=== PATIENT | male | born 1950 | race Caucasian/White ===

== ENCOUNTER 2016-07-16 11:59 | Emergency (ER) | payer MEDICARE ==
[~2016-07-16 11:59] MED LIST: ASPIRIN EC81 MG PO; ELAVIL 25 MG TA25 MG PO; FLOMAX 0.4 MG0.4 MG PO; LANTUS100 UNIT/1 SQ; LASIX20 MG PO; LORTAB 10-3251 EACH PO; LYRICA200 MG PO; NEXIUM40 MG PO; NORVASC 5 MG TAB5 MG PO; NOVOLOG 10100 UNITS/ SQ; PLAVIX 75 MG TA75 MG PO; RANEXA500 MG PO; SEROQUEL50 MG PO; TOPROL XL 25 MG25 MG PO; TRICOR48 MG PO; VENTOLIN/PROVE0.5 ML INH
== END 2016-07-16 15:10 | disposition home or self-care (01) ==
LOC: ER1 11:59
DX: F41.9 Anxiety disorder, unspecified (principal); I51.9 Heart disease, unspecified; Z88.8 Allergy status to other drugs, medicaments and biological substances; Z79.899 Other long term (current) drug therapy
CPT/HCPCS: 93005; 96374; 99283

== ENCOUNTER 2016-08-20 21:47 | Emergency (ER) | payer MEDICARE | END 2016-08-20 21:57 | disposition left against medical advice (07) | LOC: ER1 21:47 | DX: Z53.21 Procedure and treatment not carried out due to patient leaving prior to being seen by health care provider (principal) ==

== ENCOUNTER 2020-05-10 16:19 | Inpatient (IN) | payer MEDICARE, OTHER ==
[~2020-05-10] VITALS: Ht 182.9 cm; Wt 88.5 kg
[~2020-05-10 16:19] MED LIST changes: +BACTROBAN CREAM15 GM TOP; +CLARITIN10 MG PO; +CLEOCIN 150MG150 MG PO; +CYCLOBENZAPRINE5 MG PO; +HYDROCODON-ACE1 EAC6 PO; +K-DUR TAB 10 M10 MEQ PO; +LIPITOR80 MG PO; +LODINE CAP 300300 MG PO; -LORTAB 10-3251 EACH PO; +NEURONTIN300 MG PO; +NEURONTIN600 MG PO; +NITROSTAT0.4 MG SL; +NORCO 5-325 TA1 EACH PO; +NOVOLOG 10100 UNITS2 INJ; +PAXIL20 MG PO; +PAXIL40 MG PO; +PERCOCET 5-3251 EACH PO; +PREGABALIN75 MG PO; +RANEXA1000 MG PO; -RANEXA500 MG PO; +SIMVASTATIN10 MG PO; +ST. JOSEPH ASPI81 MG PO; +TOPROL XL25 MG PO; +VISTARIL25 MG PO; +ZESTRIL30 MG PO; +ZOCOR 40 MG TAB40 MG PO
[2020-05-10 17:34] LABS: HEMOGLOBIN 11.9 gm/dl (14.0-17.5); RED BLOOD COUNT 3.74 M/UL (4.20-5.50); WHITE BLOOD COUNT 5.7 K/UL (4.5-11.0)
[2020-05-10] MEDS ORDERED: VITAMIN D31250 MCG PO (23:04)
[2020-05-10] MEDS ORDERED: ACID CONTROLLER20 MG PO (23:07)
[2020-05-10] MEDS ORDERED: LANTUS SOL100 UNIT/1 SQ (23:25)
[2020-05-11 04:35] LABS: HEMOGLOBIN 10.8 gm/dl (14.0-17.5); WHITE BLOOD COUNT 4.5 K/UL (4.5-11.0)
[2020-05-11 04:36] LABS: RED BLOOD COUNT 3.34 M/UL (4.20-5.50)
[2020-05-11 04:59] LABS: BUN/CREATININE RATIO 24 (0-10)
[2020-05-13 07:09] LABS: BUN/CREATININE RATIO 13 (0-10)
[2020-05-13] MEDS ORDERED: LANTUS SOL100 UNIT/1 SQ (10:43)
== END 2020-05-13 13:06 | disposition home or self-care (01) | DRG 637 ==
LOC: ER1 16:19 → CDU 23:41 → MED SURG 4 23:41
PROVIDERS: Family Medicine; Internal Medicine; ADMIT Internal Medicine
DX: E11.649 Type 2 diabetes mellitus with hypoglycemia without coma (principal); G93.41 Metabolic encephalopathy; E86.0 Dehydration; E78.5 Hyperlipidemia, unspecified; E11.51 Type 2 diabetes mellitus with diabetic peripheral angiopathy without gangrene; I25.10 Atherosclerotic heart disease of native coronary artery without angina pectoris; N40.0 Benign prostatic hyperplasia without lower urinary tract symptoms; N17.9 Acute kidney failure, unspecified; I12.9 Hypertensive chronic kidney disease with stage 1 through stage 4 chronic kidney disease, or unspecified chronic kidney disease; E11.22 Type 2 diabetes mellitus with diabetic chronic kidney disease; Z20.822 Contact with and (suspected) exposure to COVID-19; N18.30 Chronic kidney disease, stage 3 unspecified; F39 Unspecified mood [affective] disorder; J44.9 Chronic obstructive pulmonary disease, unspecified; F41.9 Anxiety disorder, unspecified; F32.9 Major depressive disorder, single episode, unspecified; E11.40 Type 2 diabetes mellitus with diabetic neuropathy, unspecified; K21.9 Gastro-esophageal reflux disease without esophagitis; Z82.49 Family history of ischemic heart disease and other diseases of the circulatory system; Z83.3 Family history of diabetes mellitus; Z88.8 Allergy status to other drugs, medicaments and biological substances; Z95.820 Peripheral vascular angioplasty status with implants and grafts; Z95.5 Presence of coronary angioplasty implant and graft; Z95.1 Presence of aortocoronary bypass graft; Z79.02 Long term (current) use of antithrombotics/antiplatelets; Z79.82 Long term (current) use of aspirin; Z79.4 Long term (current) use of insulin; Z79.899 Other long term (current) drug therapy; D64.9 Anemia, unspecified; E88.09 Other disorders of plasma-protein metabolism, not elsewhere classified
CPT/HCPCS: 36600; 70450; 80048; 80053; 80307; 81001; 82550; 82553; 82803; 82962; 84484; 85025; 93005; 94760; 96374; 96375; 96376; 97161; 99285; G0378; J1650; J2060; J2310; J7050; J7070; U0002

== ENCOUNTER 2020-09-27 00:14 | Emergency (ER) | payer MEDICARE ==
[~2020-09-27 00:14] MED LIST changes: +ACID CONTROLLER20 MG PO; +LANTUS SOL100 UNIT/1 SQ; +VITAMIN D31250 MCG PO
[2020-09-27] MEDS ORDERED: NORFLEX 100 MG100 MG PO (02:31)
== END 2020-09-27 02:40 | disposition home or self-care (01) ==
LOC: ER1 00:14
DX: G89.29 Other chronic pain (principal); M79.604 Pain in right leg; M79.605 Pain in left leg; I25.10 Atherosclerotic heart disease of native coronary artery without angina pectoris; E78.5 Hyperlipidemia, unspecified; I11.9 Hypertensive heart disease without heart failure; E11.40 Type 2 diabetes mellitus with diabetic neuropathy, unspecified; Z95.1 Presence of aortocoronary bypass graft; Z90.49 Acquired absence of other specified parts of digestive tract; Z88.5 Allergy status to narcotic agent; Z88.8 Allergy status to other drugs, medicaments and biological substances
CPT/HCPCS: 99283

== ENCOUNTER 2020-10-23 08:53 | Emergency (ER) | payer MEDICARE ==
[~2020-10-23 08:53] MED LIST changes: -FLOMAX 0.4 MG0.4 MG PO; -LIPITOR80 MG PO; -NEURONTIN600 MG PO; -NEXIUM40 MG PO; +NORFLEX 100 MG100 MG PO; -VITAMIN D31250 MCG PO
[2020-10-23] MEDS ORDERED: CYCLOBENZAPRINE10 MG PO (12:55)
== END 2020-10-23 13:50 | disposition home or self-care (01) ==
LOC: ER1 08:53
DX: M51.36 Other intervertebral disc degeneration, lumbar region (principal); M16.11 Unilateral primary osteoarthritis, right hip; E11.40 Type 2 diabetes mellitus with diabetic neuropathy, unspecified; Z95.1 Presence of aortocoronary bypass graft; Z90.49 Acquired absence of other specified parts of digestive tract; Z87.891 Personal history of nicotine dependence
CPT/HCPCS: 72131; 73502; 82962; 96372; 99284; J2360

== ENCOUNTER 2020-11-15 15:41 | Emergency (ER) | payer MEDICARE ==
[~2020-11-15] VITALS: Ht 172.7 cm; Wt 83.9 kg
[~2020-11-15 15:41] MED LIST changes: +CYCLOBENZAPRINE10 MG PO
[2020-11-15 17:03] LABS: HEMOGLOBIN 10.7 gm/dl (14.0-17.5); RED BLOOD COUNT 3.4 M/UL (4.20-5.50); WHITE BLOOD COUNT 6.9 K/UL (4.5-11.0)
[2020-11-15 17:40] LABS: BUN/CREATININE RATIO 10 (0-10)
[2020-11-16] MEDS ORDERED: PLAVIX 75 MG TA75 MG PO (02:11)
[2020-11-16] MEDS ORDERED: NEXIUM40 MG PO (02:11)
[2020-11-16] MEDS ORDERED: FLOMAX 0.4 MG0.4 MG PO (02:13)
[2020-11-16 03:56] LABS: HEMOGLOBIN 10.8 gm/dl (14.0-17.5); RED BLOOD COUNT 3.42 M/UL (4.20-5.50)
[2020-11-16 03:57] LABS: WHITE BLOOD COUNT 4.6 K/UL (4.5-11.0)
[2020-11-16] MEDS ORDERED: NEURONTIN600 MG PO ×2 (10:35→17:47)
[2020-11-16] MEDS ORDERED: ULTRAM50 MG PO (10:36)
[2020-11-16] MEDS ORDERED: LANTUS100 UNIT/1 SC (10:37)
[2020-11-16] MEDS ORDERED: CO Q-10100 MG PO (10:40)
[2020-11-16] MEDS ORDERED: LIPITOR80 MG PO (17:08)
[2020-11-16] MEDS ORDERED: VITAMIN D31250 MCG PO (23:04)
== END 2020-11-16 15:00 | disposition left against medical advice (07) ==
LOC: ER1 15:41 → CDU 20:49
PROVIDERS: Internal Medicine; Physician Assistant
DX: N17.9 Acute kidney failure, unspecified (principal); M62.82 Rhabdomyolysis; R41.82 Altered mental status, unspecified; E87.6 Hypokalemia; E86.0 Dehydration; I12.9 Hypertensive chronic kidney disease with stage 1 through stage 4 chronic kidney disease, or unspecified chronic kidney disease; N18.9 Chronic kidney disease, unspecified; E11.40 Type 2 diabetes mellitus with diabetic neuropathy, unspecified; I25.10 Atherosclerotic heart disease of native coronary artery without angina pectoris; I73.9 Peripheral vascular disease, unspecified; E78.5 Hyperlipidemia, unspecified; J44.9 Chronic obstructive pulmonary disease, unspecified; F41.9 Anxiety disorder, unspecified; F32.9 Major depressive disorder, single episode, unspecified; K21.9 Gastro-esophageal reflux disease without esophagitis; M47.816 Spondylosis without myelopathy or radiculopathy, lumbar region; R94.31 Abnormal electrocardiogram [ECG] [EKG]; Z20.822 Contact with and (suspected) exposure to COVID-19; Z95.1 Presence of aortocoronary bypass graft; Z95.820 Peripheral vascular angioplasty status with implants and grafts; Z95.5 Presence of coronary angioplasty implant and graft
CPT/HCPCS: 36600; 70450; 71045; 72100; 72125; 73502; 80048; 80053; 80307; 81001; 82009; 82140; 82550; 82553; 82607; 82746; 82803; 82962; 83540; 83550; 83735; 83874; 84439; 84443; 84484; 85025; 85652; 86140; 87086; 93005; 99285; G0378; G0480; J3480; U0002

== ENCOUNTER 2020-12-26 12:16 | Emergency (ER) | payer MEDICARE ==
[~2020-12-26 12:16] MED LIST changes: +CO Q-10100 MG PO; +FLOMAX 0.4 MG0.4 MG PO; +LANTUS100 UNIT/1 SC; +LIPITOR80 MG PO; +NEURONTIN600 MG PO; +NEXIUM40 MG PO; +ULTRAM50 MG PO; +VITAMIN D31250 MCG PO
== END 2020-12-26 12:30 | disposition left against medical advice (07) ==
LOC: ER1 12:16
DX: Z53.21 Procedure and treatment not carried out due to patient leaving prior to being seen by health care provider (principal)

== ENCOUNTER 2021-02-12 22:30 | Emergency (ER) | payer MEDICARE ==
[2021-02-12 23:30] LABS: HEMOGLOBIN 10.3 gm/dl (14.0-17.5); RED BLOOD COUNT 3.22 M/UL (4.20-5.50)
== END 2021-02-13 00:55 | disposition home or self-care (01) ==
LOC: ER1 22:30
PROVIDERS: Physician Assistant
DX: N32.89 Other specified disorders of bladder (principal); R10.9 Unspecified abdominal pain; K21.9 Gastro-esophageal reflux disease without esophagitis; E11.9 Type 2 diabetes mellitus without complications; E78.5 Hyperlipidemia, unspecified; I10 Essential (primary) hypertension; Z95.1 Presence of aortocoronary bypass graft; Z88.8 Allergy status to other drugs, medicaments and biological substances; E11.40 Type 2 diabetes mellitus with diabetic neuropathy, unspecified
CPT/HCPCS: 80053; 81001; 85025; 96374; 96375; 99284; J2270; J2405

== ENCOUNTER 2021-02-23 16:35 | Emergency (ER) | payer MEDICARE ==
[2021-02-23 17:17] LABS: HEMOGLOBIN 11.2 gm/dl (14.0-17.5); RED BLOOD COUNT 3.48 M/UL (4.20-5.50); WHITE BLOOD COUNT 4.9 K/UL (4.5-11.0)
== END 2021-02-24 01:05 | disposition home or self-care (01) ==
LOC: ER1 16:35
PROVIDERS: Preventive Medicine Occupational Medicine
DX: F41.9 Anxiety disorder, unspecified (principal); I25.10 Atherosclerotic heart disease of native coronary artery without angina pectoris; E11.9 Type 2 diabetes mellitus without complications; I10 Essential (primary) hypertension; F17.200 Nicotine dependence, unspecified, uncomplicated
CPT/HCPCS: 36415; 71045; 80053; 82550; 82553; 83874; 84484; 85025; 99284

== ENCOUNTER 2021-11-01 02:21 | Emergency (ER) | payer MEDICARE ==
[2021-11-01] MEDS ORDERED: GABAPENTIN600 MG PO (02:49)
== END 2021-11-01 04:10 | disposition home or self-care (01) ==
LOC: ER1 02:21
DX: F41.0 Panic disorder [episodic paroxysmal anxiety] (principal); E11.40 Type 2 diabetes mellitus with diabetic neuropathy, unspecified; G89.29 Other chronic pain; Z79.4 Long term (current) use of insulin; E78.5 Hyperlipidemia, unspecified; J44.9 Chronic obstructive pulmonary disease, unspecified; K21.9 Gastro-esophageal reflux disease without esophagitis; Z95.5 Presence of coronary angioplasty implant and graft; Z88.8 Allergy status to other drugs, medicaments and biological substances
CPT/HCPCS: 99283